=== PATIENT | male | born 1995 | race Caucasian/White ===

== ENCOUNTER 2021-07-30 15:33 | Emergency (ER) | payer SELFPAY ==
[~2021-07-30] VITALS: Ht 167.6 cm; Wt 86.6 kg
[~2021-07-30 15:33] MED LIST: ALBU0.0912 IH; ALBU0.0939 IH
[2021-07-30 15:37] VITALS: BP 146/79
--- NOTE | 2021-07-30 15:45 | NUR ---
pt ambulated to bed 05 with even and steady gait
--- NOTE | 2021-07-30 16:15 | NUR ---
RAD AT BEDSIDE
--- NOTE | 2021-07-30 16:30 | NUR ---
PATIENT PLACED IN GOWN AND CONNECTED TO BEDSIDE MONITOR. SAFETY PRECAUTIONS PUT INTO PLACE, WILL CONTINUE TO MONITOR.
[2021-07-30 17:24] LABS: BASOPHILS # (AUTO) 0.1 K/uL (0.00-0.22); BASOPHILS % (AUTO) 0.7 % (0.0-2.0); EOSINOPHILS # (AUTO) 0.2 K/uL (0-0.4); HEMATOCRIT 45.2 % (36-52); HEMOGLOBIN 15.9 g/dL (12.0-18.0); LYMPHOCYTES # (AUTO) 2.3 K/uL (2.0-11.5); LYMPHOCYTES % (AUTO) 28.9 % (20.5-51.1); MEAN CORPUSCULAR HEMOGLOBIN 32 pg (27-31); MEAN CORPUSCULAR HGB CONC 35 g/dL (33-37); MEAN CORPUSCULAR VOLUME 91.9 fL (80-94); MONOCYTES # (AUTO) 0.6 K/uL (0.8-1.0); MONOCYTES % (AUTO) 7.9 % (1.7-9.3); NEUTROPHILS # (AUTO) 4.6 K/uL (1.8-7.7); NEUTROPHILS % (AUTO) 59.5 % (42.2-75.2); PLATELET COUNT (AUTO) 304 K/uL (140-450); RED BLOOD CELL COUNT(AUTO) 4.91 MIL/uL (4.20-6.10); WHITE BLOOD COUNT (AUTO) 7.8 K/uL (4.8-10.8)
--- NOTE | 2021-07-30 17:30 | NUR ---
PATIENT AWAKE IN BED, RESPIRATIONS EVEN AND UNLABORED. NO SIGNS OF DISTRESS NOTED, WILL CONTINUE TO MONITOR
[2021-07-30 18:50] LABS: ALBUMIN 4.6 g/dL (3.4-5.0); ANION GAP 19.4 (8-16); CARBON DIOXIDE 23.4 mmol/L (21-32); CREATININE 0.8 mg/dL (0.6-1.3); POTASSIUM 3.8 mmol/L (3.5-5.1); TOTAL BILIRUBIN 0.7 mg/dL (0.0-1.0)
--- NOTE | 2021-07-30 19:27 | NUR ---
Pt report given to LUCIEN SANTANA. Transfer of care at this time.
--- NOTE | 2021-07-30 19:41 | NUR ---
PT SITTING IN HIGH FOWLERS POSITION. WAITING PATIENTLY. ALL VSS. ALL NEEDS MET AT THIS TIME
[2021-07-30 20:17] VITALS: BP 157/110
--- NOTE | 2021-07-30 20:17 | NUR ---
Patient discharged with v/s stable. Written and verbal after care instructions given and explained. Patient verbalized understanding. Ambulatory with steady gait. All questions addressed prior to discharge. Advised to follow up with PMD.
--- NOTE | 2021-07-30 20:23 | NUR ---
The patient's care was reviewed and supervised by Sylvie Mccall RN.
== END 2021-07-30 20:17 | disposition home or self-care (01) ==
LOC: MED 15:33
DX: R07.9 Chest pain, unspecified (principal); R20.0 Anesthesia of skin; M79.602 Pain in left arm; J45.909 Unspecified asthma, uncomplicated
CPT/HCPCS: 36415; 71045; 80053; 84484; 85025; 93005; 99285; Q0092